=== PATIENT | male | born 1985 | race Caucasian/White ===

== ENCOUNTER 2022-07-08 16:03 | Emergency (ER) | payer MEDICAID ==
--- NOTE | 2022-07-08 17:33 | XRAY ---
Indication: Pain following ankle injury. Comparison: None 2 view right lower leg obtained. No bony, articular, or soft tissue abnormalities.
[2022-07-08 18:00] LABS: Absolute Neutrophil Ct (ANC) 5.42 x10^3/uL (1.4-6.9); BASOPHIL % 0.8 % (0.0-0.4); Basophil (Absolute #) 0.06 x10^3/uL (0-0.4); Eosinophil % 1.3 % (0.00-5.0); Hemoglobin 14.2 g/dL (12.5-18.0); IMMATURE GRAN # 0.03 x10^3u/L (0.00-0.03); IMMATURE GRAN % 0.4 % (0.00-0.4); Lymphocyte (Absolute #) 1.32 x10^3/uL (1.0-4.6); Lymphocytes % 17.3 % (24.0-44.0); Mean Cell Volume 91.1 fL (78-100); Mean Corpuscular Hemoglobin 30.8 pg (26-32); Mean Corpuscular Hgb Concent. 33.8 g/dL (32-36); Mean Platelet Volume 8.8 fL (7.5-11.0); Monocyte (Absolute #) 0.71 x10^3/uL (0.0-1.3); Monocytes % 9.3 % (0.0-12.0); Neutrophil % 70.9 % (36.0-66.0); Platelet Count 217 x10^3/uL (150-450); Red Blood Count 4.61 x10^6/uL (4.1-5.6); Red Cell Distribution Width 13.1 % (11.5-14.0); White Blood Count 7.6 x10^3/uL (4.0-10.5)
--- NOTE | 2022-07-08 18:01 | ERPHSYRPT ---
- History of Present Illness Time Seen by Provider: 07/08/22 17:58 Source: patient Exam Limitations: no limitations Patient Subjective Stated Complaint: Pt states "About a week and a half ago I was walking into the bathroom and my right foot went inward." Triage Nursing Assessment: Pt presented alert and oriented X 3, skin pwd. PT ambulates with a slight limp. pt able to speak in clear full sentences, no apparent respiratory distress. Pt right ankle tender to touch and painful upon movement, no deformity, no bruising, no swelling noted, csm X 4 Physician History: Patient is a 36-year-old male presents to our ED for evaluation of right leg pain. Patient twisted his leg approximately 1 week ago. Patient feels a b urning sensation admitted right lower leg. No signs of trauma. No other injuries reported. Pain is localized no radiation. Patient also states that he has been experiencing a cough. Patient has been coughing frequently. Patient states he coughs so hard that his sputum was blood-tinged. No trauma. No shortness of breath. Patient is a smoker. No history of PE DVT. Patient voices no other complaints or concerns at this time. Portions of this note were created with voice recognition technology. There may be grammatical, spelling, punctuation or sound alike errors Timing/Duration: today Severity: moderate Modifying Factors: Improves With: nothing Associated Symptoms: denies symptoms Allergies/Adverse Reactions: No Known Drug Allergies Allergy (Verified 07/08/22 16:24) Home Medications: No Reportable Medications [No Reported Medications] 07/08/22 [History] Hx Tetanus, Diphtheria Vaccination/Date Given: No Hx Influenza Vaccination/Date Given: No Hx Pneumococcal Vaccination/Date Given: No Immunizations Up to Date: Yes Travel Risk - International Travel Have you traveled outside of the country in past 3 weeks: No - Coronavirus Screening Are you exhibiting any of the following symptoms?: No Close contact with a COVID-19 positive Pt in past 14-21 Days: No - Vaccine Status Have you recieved a Covid-19 vaccination: No - Review of Systems Constitutional: No Symptoms, No Fever, No Chills Eyes: No Symptoms Ears, Nose, & Throat: No Symptoms Respiratory: No Symptoms, No Cough, No Dyspnea Cardiac: No Symptoms, No Chest Pain, No Edema, No Syncope Abdominal/Gastrointestinal: No Symptoms, No Abdominal Pain, No Nausea, No Vomiting, No Diarrhea Genitourinary Symptoms: No Symptoms, No Dysuria Musculoskeletal: No Symptoms, No Back Pain, No Neck Pain Skin: No Rash Neurological: No Symptoms, No Dizziness, No Focal Weakness, No Sensory Changes Psychological: No Symptoms Endocrine: No Symptoms Hematologic/Lymphatic: No Symptoms Immunological/Allergic: No Symptoms All Other Systems: Reviewed and Negative - Past Medical History Pertinent Past Medical History: No - Past Surgical History Past Surgical History: Yes Other Surgical History: left wrist surgery - Social History Smoking Status: Current every day smoker How long have you smoked: years Exposure to second hand smoke: Yes Drug Use: none Patient Lives Alone: No - Nursing Vital Signs Nursing Vital Signs: Initial Vital Signs Temperature 96.5 F 07/08/22 16:16 Pulse Rate 96 H 07/08/22 16:16 Respiratory Rate 24 07/08/22 16:16 Blood Pressure 135/91 07/08/22 16:16 O2 Sat by Pulse Oximetry 99 07/08/22 16:16 Pain Scale Pain Intensity 10 - Physical Exam General Appearance: no apparent distress, alert Eye Exam: PERRL/EOMI, eyes nml inspection Ears, Nose, Throat Exam: normal ENT inspection, TMs normal, pharynx normal, moist mucous membranes Neck Exam: normal inspection, non-tender, supple, full range of motion Respiratory Exam: normal breath sounds, lungs clear, airway intact, No resp iratory distress Cardiovascular Exam: regular rate/rhythm, normal heart sounds, normal peripheral pulses Gastrointestinal/Abdomen Exam: soft, normal bowel sounds, No tenderness, No mass Back Exam: normal inspection, normal range of motion, No CVA tenderness, No vertebral tenderness Extremity Exam: normal inspection, normal range of motion, pelvis stable, other (Pain to right lower leg) Neurologic Exam: alert, oriented x 3, cooperative, normal mood/affect, nml cerebellar function, nml station & gait, sensation nml, No motor deficits Skin Exam: normal color, warm, dry, No rash Lymphatic Exam: No adenopathy SpO2 Interpretation: normal SpO2: 98 O2 Delivery: Room Air - Course Nursing assessment & vital signs reviewed: Yes - CT Exams Chest CT Interpretation: Tele-radiologist Report (No comps. Tiny nonoccluding PE right lower lobe segment and lesser degree right upper lobe segment branches. Small focus left posterior gutter airspace disease. Also small hiatal hernia and fatty liver) - Radiology Ultrasound Exam Venous Lower Extremity Ultrasound: tele radiology report (No DVT) Ordered Tests: Active Orders 24 hr Category Date Time Status AMA [Release AMA] OM.NOW Care 07/08/22 20:36 Completed CHEST WITH CONTRAST [CT] Stat Exams 07/08/22 18:31 Taken LOWER LEG Stat Exams 07/08/22 16:29 Completed VENOUS UNILAT/LIMITED EXTREMIT [US] Stat Exams 07/08/22 19:08 Taken CBC W DIFF Stat Lab 07/08/22 17:57 Completed CMP Stat Lab 07/08/22 17:57 Completed D-DIMER QUANTITATIVE Stat Lab 07/08/22 17:57 Completed TROPONIN Q4H Lab 07/08/22 18:05 Completed TROPONIN Q4H Lab 07/08/22 22:15 Ordered Lab/Rad Data: Laboratory Result Diagrams 07/08/22 17:57 07/08/22 17:57 Laboratory Results 07/08/22 07/08/22 07/08/22 Range/Units 18:05 17:57 17:57 WBC 7.6 (4.0-10.5) x10^3/uL RBC 4.61 (4.1-5.6) x10^6/uL Hgb 14.2 (12.5-18.0) g/dL Hct 42.0 (42-50) % MCV 91.1 (78-100) fL MCH 30.8 (26-32) pg MCHC 33.8 (32-36) g/dL RDW 13.1 (11.5-14.0) % Plt Count 217 (150-450) x10^3/uL MPV 8.8 (7.5-11.0) fL Gran % 70.9 H (36.0-66.0) % Immature Gran % (Auto) 0.4 (0.00-0.4) % Nucleat RBC Rel Count 0.0 (0.00-0.1) % Eos # (Auto) 0.10 (0-0.5) x10^3/uL Immature Gran # (Auto) 0.03 (0.00-0.03) x10^3u/L Absolute Lymphs (auto) 1.32 (1.0-4.6) x10^3/uL Absolute Monos (auto) 0.71 (0.0-1.3) x10^3/uL Absolute Nucleated RBC 0.00 (0.00-0.01) x10^3u/L Lymphocytes % 17.3 L (24.0-44.0) % Monocytes % 9.3 (0.0-12.0) % Eosinophils % 1.3 (0.00-5.0) % Basophils % 0.8 (0.0-0.4) % Absolute Granulocytes 5.42 (1.4-6.9) x10^3/uL Basophils # 0.06 (0-0.4) x10^3/uL D-Dimer (0.0-0.50) mg/L Sodium 138 (137-145) mmol/L Potassium 3.4 L (3.5-5.1) mmol/L Chloride 100 (98-107) mmol/L Carbon Dioxide 30 (22-30) mmol/L Anion Gap 11.2 (5-15) MEQ/L BUN 12 (9-20) mg/dL Creatinine 0.72 (0.66-1.25) mg/dL Estimated GFR > 60.0 ML/MIN Glucose 108 H (74-106) mg/dL Calcium 8.7 (8.4-10.2) mg/dL Total Bilirubin 0.70 (0.2-1.3) mg/dL AST 44 (17-59) U/L ALT 44 (0-50) U/L Alkaline Phosphatase 68 (38-126) U/L Troponin I < 0.012 (0.000-0.034) ng/mL Serum Total Protein 7.2 (6.3-8.2) g/dL Albumin 4.2 (3.5-5.0) g/dL 07/08/22 Range/Units 17:57 WBC (4.0-10.5) x10^3/uL RBC (4.1-5.6) x10^6/uL Hgb (12.5-18.0) g/dL Hct (42-50) % MCV (78-100) fL MCH (26-32) pg MCHC (32-36) g/dL RDW (11.5-14.0) % Plt Count (150-450) x10^3/uL MPV (7.5-11.0) fL Gran % (36.0-66.0) % Immature Gran % (Auto) (0.00-0.4) % Nucleat RBC Rel Count (0.00-0.1) % Eos # (Auto) (0-0.5) x10^3/uL Immature Gran # (Auto) (0.00-0.03) x10^3u/L Absolute Lymphs (auto) (1.0-4.6) x10^3/uL Absolute Monos (auto) (0.0-1.3) x10^3/uL Absolute Nucleated RBC (0.00-0.01) x10^3u/L Lymphocytes % (24.0-44.0) % Monocytes % (0.0-12.0) % Eosinophils % (0.00-5.0) % Basophils % (0.0-0.4) % Absolute Granulocytes (1.4-6.9) x10^3/uL Basophils # (0-0.4) x10^3/uL D-Dimer 1.77 H* (0.0-0.50) mg/L Sodium (137-145) mmol/L Potassium (3.5-5.1) mmol/L Chloride (98-107) mmol/L Carbon Dioxide (22-30) mmol/L Anion Gap (5-15) MEQ/L BUN (9-20) mg/dL Creatinine (0.66-1.25) mg/dL Estimated GFR ML/MIN Glucose (74-106) mg/dL Calcium (8.4-10.2) mg/dL Total Bilirubin (0.2-1.3) mg/dL AST (17-59) U/L ALT (0-50) U/L Alkaline Phosphatase (38-126) U/L Troponin I (0.000-0.034) ng/mL Serum Total Protein (6.3-8.2) g/dL Albumin (3.5-5.0) g/dL - Progress Progress: unchanged Progress Note: 36-year-old male presents to our ED for evaluation of right leg pain and hemoptysis. Right leg pain occurred after he injured/twisted his right leg at home. His right leg injury occurred last week. Patient is a smoker. X-ray right lower extremity negative for fracture dislocation. Right lower extremity ultrasound/venous duplex negative for DVT. D-dimer positive. CTA chest reveals 2 small PEs.'s small nonoccluding right upper lobe and right lower lobe PE. Patient states that he could not wait because he has a court date tomorrow. Other test ordered include CBC which is essentially within normal limits. CMP reveals mild hypokalemia at 3.4. Troponin negative. We accommodated patient's request to leave AMA. We attempted to contact hospitalist for consultation to treat PE on an outpatient basis. However patient felt he did not have time to wait for return call from the hospitalist and patient absconded from our ED prior to further discussion regarding plan of care. However patient did voice to us he intended to leave AGAINST MEDICAL ADVICE. Patient is of sound mind. Patient is appropriate to make informed and independent medical decisions. Patient understands that leaving AGAINST MEDICAL ADVICE can result in delayed diagnosis, increased risk of morbidity, mortality, short and long-term disability including . In spite of these risks, patient has decided to leave AGAINST MEDICAL ADVICE. Patient understands that he may return to our ED at any point if he reconsiders. Patient agrees to follow-up with his or her primary care doctor within 48 hours for reevaluation. Patient voices no other complaints or concerns at this time. We will release patient AGAINST MEDICAL ADVICE per their request. 07/08/22 20:46 Patient's initial problem was acute. However no acute distress upon arrival. Complexity of problem addressed was moderate. New diagnosis with uncertain prognosis. No critical care time. Complex of data reviewed and analyzed was moderate. Testing ordered reviewed and analyzed. Results were used for medical decision making. Patient served as independent historian however his significant other at bedside also contributed to HPI. We attempted to consult hospitalist however patient refused to wait for return call. We intended to prescribe a blood thinner possibly Xarelto as an outpatient. However patient did not wait for our hospitalist consultation to confirm the most appropriate outpatient management for patient's PE. Risk of complication and or risk morbidity/mortality of patient management is minimal. Patient left AMA. Patient not receive any treatment at all for his PE. Patient absconded prior to final discussion regarding management. Portions of this note were created with voice recognition technology. There may be grammatical, spelling, punctuation or sound alike errors Counseled pt/family regarding: lab results, diagnosis, rad results - Departure Departure Disposition: Home Clinical Impression: Pulmonary embolism, Fatty liver, Hiatal hernia, Hemoptysis Condition: Stable Critical Care Time: No Referrals: KATHRINE ALBARRAN, INVESTOR [Primary Care Provider] - Follow up/PCP as directed
[2022-07-08 18:13] LABS: ALBUMIN 4.2 g/dL (3.5-5.0); ALKALINE PHOSPHATASE 68 U/L (38-126); ANION GAP 11.2 MEQ/L (5-15); BLOOD UREA NITROGEN 12 mg/dL (9-20); CHLORIDE 100 mmol/L (98-107); Calcium 8.7 mg/dL (8.4-10.2); Carbon Dioxide 30 mmol/L (22-30); Creatinine 1 0.72 mg/dL (0.66-1.25); EST GLOMERULAR FILTRATION RATE > 60.0 ML/MIN; Glucose 108 mg/dL (74-106); Potassium 3.4 mmol/L (3.5-5.1); SGOT/AST 44 U/L (17-59); SGPT/ALT 44 U/L (0-50); SODIUM 138 mmol/L (137-145); Total Protein 7.2 g/dL (6.3-8.2)
[2022-07-08 18:34] VITALS: BP 123/84; PULSE 78
[2022-07-08 20:19] VITALS: O2SAT 98
--- NOTE | 2022-07-09 08:29 | XRAY ---
Indication: Right leg pain. DVT. Two-dimensional sonogram and color Doppler imaging of the major venous vessels of the right leg performed. Comparison: None No thrombus seen in the examined deep venous vessels of the right leg including greater saphenous vein. Veins demonstrate normal compressibility. Venous waveforms are normal with and without augmentation. Impression: Right leg negative for DVT. Comment: Preliminary report was given.
--- NOTE | 2022-07-09 08:31 | XRAY ---
Indication: Hemoptysis. Elevated d-dimer. Pulmonary embolus. Multiple contiguous axial images obtained through the chest using 80 cc Isovue 370 contrast and pulmonary embolus protocol. Comparison: None Adequate opacification of the pulmonary arteries. Tiny nonoccluding pulmonary emboli seen in the segmental branches of the right lower and lesser degree right upper and right middle lobes. Heart not enlarged. Aorta is normal in course and caliber. No pathologic mediastinal/hilar lymphadenopathy. Small hiatal hernia. Lungs demonstrates minimal left base subsegmental atelectasis. Posterior left gutter also demonstrates small focus of airspace disease without effusion. Bony thorax intact. Limited upper abdomen demonstrates fatty liver. Impression: 1. Nonoccluding right lung pulmonary emboli as detailed. No distal infarct. 2. Small focus left lung base airspace disease. 3. Incidental small hiatal hernia and fatty liver.
== END 2022-07-08 20:35 | disposition left against medical advice (07) ==
LOC: ED 16:03
DX: I26.94 Multiple subsegmental thrombotic pulmonary emboli without acute cor pulmonale (principal); K44.9 Diaphragmatic hernia without obstruction or gangrene; K76.0 Fatty (change of) liver, not elsewhere classified; R04.2 Hemoptysis; M79.604 Pain in right leg; Z28.310 Unvaccinated for COVID-19; Z72.0 Tobacco use
CPT/HCPCS: 36415; 71260; 73590; 80053; 84484; 85025; 85379; 93971; 99284